=== PATIENT | female | born 1995 | race Caucasian/White ===

== ENCOUNTER 2023-08-02 16:36 | Emergency (ER) | payer OTHER ==
[~2023-08-02] VITALS: Ht 157.5 cm; Wt 81.6 kg
[2023-08-02 16:48] VITALS: BP 128/76; PULSE 94; RESP 18; TEMP 97.8; O2SAT 98
[2023-08-02] MEDS ORDERED: BACITRACIN OINT 500 UNITS/GM PKT TP ONE (18:50)
[2023-08-02] MEDS: BACITRACIN OINT 500 UNITS/GM PKT TP ONE (18:54)
[2023-08-02] MEDS ORDERED: BACI-418 TP (18:55)
[2023-08-02] MEDS ORDERED: CEPH-588 PO (18:55)
== END 2023-08-02 18:59 | disposition home or self-care (01) ==
LOC: MED 16:36
DX: O99.712 Diseases of the skin and subcutaneous tissue complicating pregnancy, second trimester (principal); L03.114 Cellulitis of left upper limb; O26.892 Other specified pregnancy related conditions, second trimester; R03.0 Elevated blood-pressure reading, without diagnosis of hypertension; Z3A.18 18 weeks gestation of pregnancy; Z79.2 Long term (current) use of antibiotics; Z79.899 Other long term (current) drug therapy
CPT/HCPCS: 99284

== ENCOUNTER 2023-08-06 21:38 | Emergency (ER) | payer OTHER ==
[~2023-08-06] VITALS: Ht 157.5 cm; Wt 81.6 kg
[~2023-08-06 21:38] MED LIST: BACI-418 TP; CEPH-588 PO
[2023-08-06 21:46] VITALS: BP 128/79; PULSE 88; RESP 16; TEMP 97.8; O2SAT 97
[2023-08-07 00:52] LABS: BASOPHILS % (AUTO) 0.3 % (0.0-2.0); EOSINOPHILS # (AUTO) 0.1 K/uL (0-0.4); EOSINOPHILS % (AUTO) 0.6 % (0.0-4.0); HEMATOCRIT 35.2 % (36-48); HEMOGLOBIN 12.4 g/dL (12.0-16.0); LYMPHOCYTES # (AUTO) 2.3 K/uL (2.5-16.5); LYMPHOCYTES % (AUTO) 18.6 % (20.5-51.1); MEAN CORPUSCULAR HEMOGLOBIN 33 pg (27-31); MEAN CORPUSCULAR HGB CONC 35 g/dL (33-37); MEAN CORPUSCULAR VOLUME 93.9 fL (80-94); MONOCYTES % (AUTO) 7.8 % (1.7-9.3); NEUTROPHILS # (AUTO) 9.1 K/uL (1.8-7.7); NEUTROPHILS % (AUTO) 72.7 % (42.2-75.2); PLATELET COUNT (AUTO) 363 K/uL (140-450); RED BLOOD CELL COUNT(AUTO) 3.75 MIL/uL (4.20-5.40); RED CELL DISTRIBUTION WIDTH 13.1 % (11.6-13.7); WHITE BLOOD COUNT (AUTO) 12.5 K/uL (4.8-10.8)
[2023-08-07 01:04] LABS: ANION GAP 14.9 (8-16); CALCIUM 9.1 mg/dL (8.5-10.1); CARBON DIOXIDE 23.9 mmol/L (21-32); CREATININE 0.5 mg/dL (0.6-1.3); POTASSIUM 3.8 mmol/L (3.5-5.1)
[2023-08-07] MEDS ORDERED: LIDOCAINE/PRILOCAINE 2.5% 5 GM TUBE TP ONE (02:05)
[2023-08-07] MEDS: LIDOCAINE/EPI 1% 1:100000 20 ML VIAL INJ ONE (02:08)
[2023-08-07] MEDS: LIDOCAINE/PRILOCAINE 2.5% 5 GM TUBE TP ONE (02:13)
[2023-08-07 03:14] VITALS: BP 122/79; PULSE 82; RESP 14; TEMP 97.8; O2SAT 97
[2023-08-07] MEDS ORDERED: ACET-10509 PO (03:26)
== END 2023-08-07 03:36 | disposition home or self-care (01) ==
LOC: MED 21:38
DX: T22.112D Burn of first degree of left forearm, subsequent encounter (principal); O9A.212 Injury, poisoning and certain other consequences of external causes complicating pregnancy, second trimester; L03.114 Cellulitis of left upper limb; Z79.899 Other long term (current) drug therapy; Z3A.18 18 weeks gestation of pregnancy; X08.8XXA Exposure to other specified smoke, fire and flames, initial encounter; Y93.89 Activity, other specified; Y92.89 Other specified places as the place of occurrence of the external cause; Y99.8 Other external cause status
CPT/HCPCS: 16020; 36415; 73090; 80048; 85025; 99284; J2001